=== PATIENT | female | born 1965 | race Caucasian/White ===

== ENCOUNTER → 2023-05-30 09:39 | Outpatient (REF) | payer BC, SELFPAY | LOC: RAD 09:39 | PROVIDERS: ATTENDING PHYSICIAN Obstetrics & Gynecology; FAMILY PHYSICIAN Internal Medicine | DX: R10.2 Pelvic and perineal pain (principal) | CPT/HCPCS: 76830; 76856 ==

== ENCOUNTER 2024-10-13 00:43 | Emergency (ER) | payer BC, SELFPAY ==
[2024-10-13 00:45] VITALS: BP 120/90
[2024-10-13 01:12] VITALS: BP 141/78
[2024-10-13 01:38] LABS: Hematocrit 44.5 % (37.0-47.0); Hemoglobin 15.2 g/dL (12.0-16.0); Mean Corp Hgb Conc. 34.2 g/dL (33.0-37.0); Mean Corpuscular Volume 89.5 fL (81.0-99.0); Nucleated Red Blood Cells % 0 %; Platelet Count 207 10^3/uL (130-400); Red Cell Dist. Width 12.4 % (11.5-14.5)
--- NOTE | 2024-10-13 01:56 | ED.GENMED ---
History of Present Illness
General
Chief Complaint: Abdominal Symptoms
Source: patient, records and spouse
Exam Limitations: none
Time Seen by Provider: 10/13/24 01:02
Nursing documentation reviewed up to this point in time: agreed with
History of Present Illness
History of Present Illness:
59-year-old female with distant history of breast cancer currently in remission presents to the ER for evaluation of dizziness with nausea and vomiting. Patient reports symptoms started on Friday while she was moving her daughter in for college
that she says she moves her head quickly and noted room spinning sensation. She was able to drive home but as the evening went on had continued dizziness and developed severe nausea and vomiting. She reports symptoms much worse with movement of
the head. No clear relieving factors noted. She has had occasional headache. She denies any chest pain or palpitations. Denies any abdominal pain. She denies any other acute complaints including neck pain, vision loss, focal weakness or
numbness. She has not had any recent URI symptoms. She says she had identical episode a few years ago in 2018 from vertigo and required vestibular rehab.
Past History
Past History
ED Past Medical History: None
ED Past Surgical History: None
Social History
Tobacco: Non-smoker
Drug: None
Personal:
Living: with family
Employment: Not employed
Family History
Family History: Other (NA)
Review of Systems
Review of Systems
All Other Systems: ROS reviewed and negative except as documented in HPI and ROS
Constitutional: Denies fever
EENT: Denies sore throat
Respiratory: Denies cough or trouble breathing
Cardiac: Denies chest pain or palpitations
ABD/GI: Reports nausea and vomiting; Denies abdominal pain
: Denies flank pain
Musculoskeletal: Denies neck pain or back pain
Neurological: Reports dizzy and headache; Denies weakness or numbness
Phy Exam
Physical Exam
Physical Exam:
General: Awake, alert, oriented x3; no acute distress
Head: Normocephalic, atraumatic
Eyes: Conjunctiva normal, EOMI, pupils equal round and reactive to light bilaterally; positive Hannah-Hallpike with reproducible nystagmus to the left
Ears: Canals clear bilaterally, TMs appear normal bilaterally with good light reflex and no erythema or bulging
Throat: Airway intact, handling secretions
Neck: Trachea midline, supple without meningismus
Lungs: Clear to auscultation bilaterally, no wheezing, rales, rhonchi
Heart: Regular rate and rhythm, no murmurs, gallops, or rubs
Abd: Soft, non distended, nontender
Neuro: Cranial nerves grossly intact, speech fluid, motor and sensory intact in all extremities
Extremities: No edema in extremities, equal pulses in all extremities
Scores
Heart Failure Risk
Heart Failure Risk Score: Not Applicable
Heart Score for Chest Pain Patients
STEMI patient?: Not applicable
Withdrawal Assessment of Alcohol
Withdrawal Assessment Completed?: Not applicable
Course
Orders/Labs/Results
Orders:
Orders
10/13/24 01:03
Electrocardiogram (*1) Urgent
Reason for Study: QTc Monitoring
EKG- Treatment ONCE
10/13/24 01:26
COVID-19 Antigen Urgent
Source: Nasal Swab
Complete Blood Count/With Diff Urgent
Comprehensive Metabolic Panel Urgent
Lipase Urgent
Troponin I Urgent
Influenza A+B Rapid Molecular Urgent
VARUN Source: Nasal Swab
Specimen Description:
10/13/24 01:49
0.9% Sodium Chloride 1000 ml [Nss] 1,000 ml IV BOLUS
10/13/24 01:50
Ondansetron Injectable [Zofran] 4 mg IV NOW STA
diazePAM [Valium Injection] 2 mg IV NOW STA
10/13/24 02:49
Encourage PO Hydration-Treatme ONCE
Meclizine [Antivert] 25 mg PO NOW STA
Abnormal Lab Results
10/13/24
01:26
Absolute Monos (auto) 0.7 H 10^3/uL
(0.1-0.6)
Glucose 105 H mg/dl
(70-99)
10/13/24 01:26
10/13/24 01:26
Vital Signs
Initial and Last Documented VS:
Initial Vital Signs
Temp Pulse Resp BP Pulse Ox
36.8 C 112 24 120/90 97
10/13/24 00:45 10/13/24 00:45 10/13/24 00:45 10/13/24 00:45 10/13/24 00:45
Last Documented Vital Signs
Temp Pulse Resp BP Pulse Ox
36.8 C 83 20 135/86 93
10/13/24 00:45 10/13/24 02:30 10/13/24 02:30 10/13/24 02:05 10/13/24 02:30
MDM/Problems Addressed
Differential Diagnosis Includes:
Peripheral vertigo: BPPV, labyrinthitis, M�ni�re's, etc
MDM/Problems Addressed:
59-year-old female presents for evaluation of dizziness associated with nausea and vomiting over the past few days similar to previous episode of vertigo. Vitals and exam as above�presentation is consistent with peripheral vertigo. Labs sent off
in triage including CBC and CMP, troponin (patient denies any chest pain but has severe nausea). EKG reviewed by me shows no STEMI. Will swab for COVID and flu. Will treat symptomatically and provide fluids. Reassess after the above. Very low
clinical suspicion for stroke/central vertigo�in my judgment no indication for further workup for this diagnosis.
Labs reviewed: CBC and CMP unremarkable, troponin undetectable. COVID and flu swabs are negative. Clinical reassessment patient is feeling better, nausea improved as has dizziness. She has been able to take p.o. ice chips. She still has some
dizziness with positional changes; now that nausea has improved and she is tolerating p.o., will trial meclizine and reassess.
Patient feeling better, tolerating p.o. Vital signs normal. Stable for discharge. Refer to ENT as well as vestibular therapy. Meclizine as needed. Patient comfortable this plan. Spoke about return precautions all questions answered.
*Pulse Oximetry
SaO2: 97
Oxygen Mode of Delivery: Room air
Patient hypoxic: no (97%)
*EKG
Interpreted by ED Provider?: Yes
Heart Rate: 74
Rate: normal
Rhythm: sinus
[place]: normal axis
Interval: normal interval
QRS Pattern: normal QRS
Ischemia: no ischemia
*Critical Care Note
Total Time (30-74mins, 75-104mins- exclusive of procedures): Not Applicable
Data Reviewed
Review of Other/Old Records Reveals: Labs and Records
Source: patient, records, spouse and family
Further Testing Considered But Not Given:
Considered CT head/CTA head and neck
ED Attending Note
-
Portions of this chart may have been created with voice recognition software.� Occasional wrong word or��sound alike� substitutions may have occurred due to the inherent limitations of voice recognition software.
Discharge Plan
Departure
Patient with high blood pressure during this ER visit?: No
Discharge Problem:
Vertigo
Instructions: Vertigo (a type of dizziness)
Prescriptions:
New
meclizine 25 mg tablet
25 mg PO BID PRN (Reason: dizziness) Qty: 30 0RF
No Action
acetaminophen [Tylenol Extra Strength] 500 MG tablet
1,000 mg PO Q6HPRN PRN (Reason: pain)
loratadine 10 MG tablet
10 mg PO NOON
Referrals:
Sophie Dueñas MD [Family Provider, Internal Medicine] - Call in 1-3 days for appt
Dany Jaffe MD [Active, ENT] - Call in 1-3 days for appt
Activity Restrictions/Additional Instructions:
Thank you for visiting the Emergency Department at [facility].
1. Please schedule a follow up appointment as directed. Call first thing tomorrow morning to make an appointment.
2. If indicated, please take your medications as instructed and indicated on discharge paperwork.
3. If any of your symptoms do not improve, or persist, or become more severe within 6-12 hours, please return to the emergency department for further care.
4. Please return to the emergency department if you develop a headache, neck pain/stiffness, fever greater than 100.4F, chest pain, shortness of breath, persistent nausea, vomiting, slurred speech, difficulty walking, numbness/tingling, weakness,
signs of infection or any other symptoms that are worrisome to you.
Please call [phone] if you have any questions.
Interventions
Interventions:
*Risk Screen - Suicide Last Done: 10/13/24 00:45
*General Assessment Last Done: 10/13/24 02:00
*Neglect/Abuse Screening Last Done: 10/13/24 00:45
*ED- Fall Risk Assessment Last Done: 10/13/24 02:00
*ED COVID-19 Vaccine History Last Done: 10/13/24 02:00
FR-Xwyadl-Mstccequzj Assessment Last Done: 10/13/24 01:15
ED- Neurological Assessment Last Done: 10/13/24 01:15
Discharge Date and Time
Print Language: BRUNEIAN
[2024-10-13] MEDS: ZOFRAN 4 MG IV (01:59)
[2024-10-13] MEDS: VALIUM INJECTION 2 MG IV (01:59)
[2024-10-13] MEDS: NSS 1000 IV (02:00)
[2024-10-13 02:01] LABS: ALT (SGPT) 20 U/L (0-35); AST (SGOT) 25 U/L (14-36); Albumin 4.9 g/dl (3.5-5.0); Alkaline Phosphatase 73 U/L (38-126); Blood Urea Nitrogen 17 mg/dl (7-17); Calcium 9.6 mg/dl (8.4-10.2); Carbon Dioxide 23 mmol/L (22-30); Chloride 106 mmol/L (98-107); Glucose 105 mg/dl (70-99); Lipase 146 U/L (23-300); Potassium 4.1 mmol/L (3.5-5.1); Sodium 140 mmol/L (135-145); Total Protein 7.6 g/dl (6.3-8.2); eGFR > 60.00
[2024-10-13 02:05] VITALS: BP 135/86
[2024-10-13 02:05] LABS: COVID-19 Antigen Negative (Negative)
[2024-10-13 02:13] LABS: Troponin I < 0.012 ng/ml
[2024-10-13 03:00] VITALS: BP 141/77
[2024-10-13] MEDS: ANTIVERT 25 MG PO (03:02)
== END 2024-10-13 04:37 | disposition home or self-care (01) ==
LOC: EMR 00:43
PROVIDERS: EMERGENCY PHYSICIAN Emergency Medicine; FAMILY PHYSICIAN Internal Medicine
DX: R42 Dizziness and giddiness (principal); R11.2 Nausea with vomiting, unspecified; Z85.3 Personal history of malignant neoplasm of breast
CPT/HCPCS: 99283; 96374; 96375; 96361; 80053; 83690; 84484; 85025; 87502; 87811; 93005